=== PATIENT | male | born 1975 | race Caucasian/White ===

== ENCOUNTER 2021-12-24 22:25 | Emergency (ER) | payer MEDICAID ==
[~2021-12-24] VITALS: Ht 170.2 cm; Wt 79.8 kg
[2021-12-24 23:22] VITALS: BP 138/91
--- NOTE | 2021-12-24 23:28 | NUR ---
TO LOBBY FOLLOWING TRIAGE
--- NOTE | 2021-12-25 02:59 | NUR ---
PT TO BED #9
--- NOTE | 2021-12-25 03:18 | NUR ---
[facility] AT BEDSIDE.
--- NOTE | 2021-12-25 03:24 | NUR ---
46 YO M BIB SELF WITH C/C OF 10/ H/A X1 MONTH. PT STATES HE WAS TOLD HE NEEDS TO TAKEN BP MEDS BUT HASNT. DENIES CHEST PAIN AND SOB. BP IS 148/99. DENIES HX, RX AND ALLERGIES
[2021-12-25 03:26] LABS: BASOPHILS # (AUTO) 0.1 K/uL (0.00-0.22); BASOPHILS % (AUTO) 1.1 % (0.0-2.0); EOSINOPHILS # (AUTO) 0.4 K/uL (0-0.4); EOSINOPHILS % (AUTO) 5.8 % (0.0-4.0); HEMATOCRIT 43.6 % (36-52); HEMOGLOBIN 14.3 g/dL (12.0-18.0); LYMPHOCYTES # (AUTO) 2.2 K/uL (2.0-11.5); LYMPHOCYTES % (AUTO) 34.7 % (20.5-51.1); MEAN CORPUSCULAR HEMOGLOBIN 28 pg (27-31); MEAN CORPUSCULAR HGB CONC 33 g/dL (33-37); MEAN CORPUSCULAR VOLUME 84.7 fL (80-94); MONOCYTES # (AUTO) 0.7 K/uL (0.8-1.0); MONOCYTES % (AUTO) 10.6 % (1.7-9.3); NEUTROPHILS # (AUTO) 3.1 K/uL (1.8-7.7); NEUTROPHILS % (AUTO) 47.8 % (42.2-75.2); PLATELET COUNT (AUTO) 240 K/uL (140-450); RED BLOOD CELL COUNT(AUTO) 5.15 MIL/uL (4.20-6.10); RED CELL DISTRIBUTION WIDTH 14.7 % (11.6-13.7); WHITE BLOOD COUNT (AUTO) 6.4 K/uL (4.8-10.8)
[2021-12-25 04:05] LABS: ALBUMIN 3.9 g/dL (3.4-5.0); ANION GAP 12.6 (8-16); CARBON DIOXIDE 28.8 mmol/L (21-32); CREATININE 1.1 mg/dL (0.6-1.3); POTASSIUM 4.4 mmol/L (3.5-5.1); THYROID STIMULATING HORMONE 5.74 uIU/mL (0.34-3.74); TOTAL BILIRUBIN 0.2 mg/dL (0.0-1.0)
[2021-12-25] MEDS ORDERED: CETI10TA81 PO (05:10)
[2021-12-25 05:18] VITALS: BP 137/89
--- NOTE | 2021-12-25 05:18 | NUR ---
Patient discharged with v/s stable. Written and verbal after care instructions given and explained. Patient alert, oriented and verbalized understanding of instructions. Ambulatory with steady gait. All questions addressed prior to discharge. ID band removed. Patient advised to follow up with PMD. Rx of ZYRTEC given. Patient educated on indication of medication including possible reaction and side effects. Opportunity to ask questions provided and answered.
== END 2021-12-25 05:18 | disposition home or self-care (01) ==
LOC: MED 22:25
DX: R53.83 Other fatigue (principal); R21 Rash and other nonspecific skin eruption; R94.6 Abnormal results of thyroid function studies; I10 Essential (primary) hypertension; E11.9 Type 2 diabetes mellitus without complications; F17.200 Nicotine dependence, unspecified, uncomplicated; Z79.4 Long term (current) use of insulin; Z79.899 Other long term (current) drug therapy; Z72.89 Other problems related to lifestyle
CPT/HCPCS: 36415; 80053; 84443; 85025; 99283

== ENCOUNTER 2022-05-14 23:50 | Emergency (ER) | payer MEDICAID ==
[~2022-05-14] VITALS: Ht 170.2 cm; Wt 78.9 kg
[~2022-05-14 23:50] MED LIST: CETI10TA81 PO
[2022-05-15 00:01] VITALS: BP 124/80
--- NOTE | 2022-05-15 01:00 | NUR ---
PT TO 3
[2022-05-15] MEDS ORDERED: METOPROLOL 25 MG TAB PO ONE (01:35)
[2022-05-15] MEDS ORDERED: ACETAMINOPHEN EXTRA STRENGTH 500 MG TAB PO ONE (01:35)
[2022-05-15] MEDS ORDERED: LISI2.5T12 PO (01:41)
[2022-05-15] MEDS ORDERED: METO25TA PO (01:41)
[2022-05-15] MEDS ORDERED: ACET-10509 PO (01:41)
[2022-05-15 01:53] VITALS: BP 133/88
--- NOTE | 2022-05-15 01:54 | NUR ---
Patient discharged with v/s stable. Written and verbal after care instructions given and explained. New prescription for tyenol, zestril, metoprolol. Patient verbalized understanding. Ambulatory with steady gait. All questions addressed prior to discharge. Advised to follow up with PMD.
== END 2022-05-15 01:51 | disposition home or self-care (01) ==
LOC: MED 23:50
DX: R51.9 Headache, unspecified (principal); E11.9 Type 2 diabetes mellitus without complications; I10 Essential (primary) hypertension; Z76.0 Encounter for issue of repeat prescription; Z79.899 Other long term (current) drug therapy
CPT/HCPCS: 99281

== ENCOUNTER 2022-06-18 22:48 | Emergency (ER) | payer MEDICAID ==
[~2022-06-18] VITALS: Ht 160 cm; Wt 79.4 kg
[~2022-06-18 22:48] MED LIST changes: +ACET-10509 PO; +LISI2.5T12 PO; +METO25TA PO
[2022-06-18 23:01] VITALS: BP 105/70
--- NOTE | 2022-06-19 01:40 | NUR ---
PT TO BED 08.
--- NOTE | 2022-06-19 01:41 | NUR ---
46 YO M BIB SELF WITH C/C OF 8/10 HEADACHE X2DAYS. DENIES VISION CHANGES. NO BLURRED VISION. PT STATES HE NOT BEEN COMPLIANT WITH BLOOD PRESSURE MEDICATION D/T RUNNING OUT. STATES HE HAS NOT CHECKED HIS BP EITHER. HX:HTN RX:LISINOPRIL ALLERGY:PCN
--- NOTE | 2022-06-19 02:00 | NUR ---
MICHELLE BORRERO AT BEDSIDE ASSESSING PT.
[2022-06-19] MEDS ORDERED: METO25TA PO (02:11)
[2022-06-19] MEDS ORDERED: LISI2.5T12 PO (02:11)
[2022-06-19 02:33] VITALS: BP 128/77
--- NOTE | 2022-06-19 02:33 | NUR ---
Patient discharged with v/s stable. Written and verbal after care instructions given and explained. Patient alert, oriented and verbalized understanding of instructions. Ambulatory with steady gait. All questions addressed prior to discharge. ID band removed. Patient advised to follow up with PMD. Rx of Metoprolol and Lisinopril given. Patient educated on indication of medication including possible reaction and side effects. Opportunity to ask questions provided and answered.
== END 2022-06-19 02:33 | disposition home or self-care (01) ==
LOC: MED 22:48
DX: I10 Essential (primary) hypertension (principal); Z76.0 Encounter for issue of repeat prescription; Z79.899 Other long term (current) drug therapy; Z88.0 Allergy status to penicillin
CPT/HCPCS: 99281

== ENCOUNTER 2022-08-03 23:01 | Emergency (ER) | payer MEDICAID ==
[~2022-08-03] VITALS: Ht 160 cm; Wt 78.0 kg
[2022-08-03 23:12] VITALS: BP 120/84
--- NOTE | 2022-08-03 23:22 | NUR ---
PT TO 4
--- NOTE | 2022-08-03 23:24 | NUR ---
received in bed 4 with C/O medication refill x today. Patient reported, ran out his medication for 3 days. Med: Lisinopril 2.5 mg , Lopressor 25 mg
--- NOTE | 2022-08-03 23:36 | NUR ---
[facility]IST[facility] examining patient.
[2022-08-03] MEDS ORDERED: LISI2.5T12 PO (23:46)
[2022-08-03] MEDS ORDERED: METO25TA PO (23:46)
[2022-08-03 23:50] VITALS: BP 120/84
--- NOTE | 2022-08-03 23:50 | NUR ---
Patient discharged with v/s stable. Written and verbal after care instructions given and explained. Patient alert, oriented and verbalized understanding of instructions. Ambulatory with steady gait. All questions addressed prior to discharge. ID band removed. Patient advised to follow up with PMD. Rx of zestril, and lopressor given. Patient educated on indication of medication including possible reaction and side effects. Opportunity to ask questions provided and answered.
== END 2022-08-03 23:50 | disposition home or self-care (01) ==
LOC: MED 23:01
DX: E11.9 Type 2 diabetes mellitus without complications (principal); I10 Essential (primary) hypertension; Z76.0 Encounter for issue of repeat prescription; Z79.4 Long term (current) use of insulin; Z79.899 Other long term (current) drug therapy
CPT/HCPCS: 99281

== ENCOUNTER 2022-10-05 10:49 | Emergency (ER) | payer MEDICAID ==
[~2022-10-05] VITALS: Ht 170.2 cm; Wt 78.9 kg
--- NOTE | 2022-10-05 10:52 | NUR ---
DR SAHA IN ROOM FOR EXAM
[2022-10-05 10:53] VITALS: BP 115/78
[2022-10-05] MEDS ORDERED: METO25TA PO (11:09)
[2022-10-05] MEDS ORDERED: LISI2.5T12 PO (11:09)
[2022-10-05] MEDS ORDERED: IBUP-2213 PO (11:09)
--- NOTE | 2022-10-05 11:09 | NUR ---
PT COMES IN WITH C/O INTERMITTENT FRONTAL HEADACHE 4-5/10 FOR THE LAST TWO WEEKS, REPORTS MILD CHNAGES IN VISION FOR 1 YEAR. STATES HE RAN OUT OF HIS BP MEDS, HE TAKES LISINOPRIL BID , BUT SINCE [place], HE NO LONGER HAS A PCP. NO NEURO DEFICITS. PT AAOX4, IN NAD. SKIN WBOBO.
--- NOTE | 2022-10-05 11:11 | NUR ---
TEACHING DONE ON IMPORTANCE OF YEARLY EYE EXAMS, VERBALIZED UNDERSTANDING.
[2022-10-05 11:33] VITALS: BP 115/78
--- NOTE | 2022-10-05 11:33 | NUR ---
Patient discharged with v/s stable. Written and verbal after care instructions given and explained. Patient verbalized understanding. Ambulatory with steady gait. All questions addressed prior to discharge. Advised to follow up with PMD.
== END 2022-10-05 11:20 | disposition home or self-care (01) ==
LOC: MED 10:49
DX: R51.9 Headache, unspecified (principal); I10 Essential (primary) hypertension; E11.9 Type 2 diabetes mellitus without complications; Z88.0 Allergy status to penicillin; Z79.4 Long term (current) use of insulin; Z79.899 Other long term (current) drug therapy
CPT/HCPCS: 99282